=== PATIENT | female | born 1945 ===

== ENCOUNTER 2017-01-25 06:32 | Day surgery (SDC) | payer MEDICARE ==
[2017-01-25 07:04] VITALS: BMI 34.9
[2017-01-25] MEDS ORDERED: Lactated Ringer's 1,000 ML IV ONE (08:00)
--- NOTE | 2017-01-25 08:01 | CP.SDSHP ---
Same Day Surgery H & P - History Proposed Procedure: EGD Pre-Op Diagnosis: SEE NOTES - Previous Medical/Surgical History Endocrine/Metabolic: Other Misc: Other Pain: 4.Moderate Pain - Allergies Allergies: Allergies aspirin Allergy (Intermediate, Verified 01/25/17 07:03) ITCHING TINGLING AND ITCHING OF THE TONGUE. ciprofloxacin [From Cipro] Allergy (Intermediate, Verified 01/25/17 07:03) ITCHING TINGLING AND ITCHING OF TONGUE - Physical Exam General Appearance: N Vital Signs: Vital Signs 01/25/17 07:15 Temperature 97.3 F L Pulse Rate 66 Respiratory 19 Rate Blood Pressure 122/56 L O2 Sat by Pulse 99 Oximetry Mental Status: Alert & Oriented x3 Neuro: WNL Heart: WNL Lungs: WNL GI: Other - {Optional Preform as Required} Breast: WNL Abdomen: Other Rectal: Other Integument: WNL : WNL Ortho: WNL ENT: WNL - Impression Pt. Evaluated Today:Candidate for Anesthesia & Procedure: Yes - Date & Time Time: 08:01 Short Stay Discharge - Short Stay Discharge Admitting Diagnosis/Reason for Visit: DYSPEPSIA Disposition: HOME/ ROUTINE
[2017-01-25] MEDS ORDERED: Belladonna-Phenobarbital PO STA (08:02)
[2017-01-25] MEDS ORDERED: Pantoprazole 40 mg EC Tab PO STA (08:02)
[2017-01-25] MEDS ORDERED: Propofol 10 mg/ml Inj (20 ML) ONE (08:02)
[2017-01-25] MEDS ORDERED: Lidocaine Hydrochloride 5 ML INJ ONE (08:03)
[2017-01-25] MEDS ORDERED: Lactated Ringer's 500 ML IV SCH (08:15)
[2017-01-25 08:31] VITALS: TEMP 97.7
[2017-01-25 08:50] VITALS: O2SAT 99
[2017-01-25 08:52] VITALS: BP 121/73; PULSE 64; RESP 14
== END 2017-01-25 09:45 | disposition home or self-care (01) ==
LOC: C.ENDO 06:32
PROVIDERS: ATTEND Specialist
DX: K29.50 Unspecified chronic gastritis without bleeding (principal); K44.9 Diaphragmatic hernia without obstruction or gangrene; K29.80 Duodenitis without bleeding; B96.81 Helicobacter pylori [H. pylori] as the cause of diseases classified elsewhere
CPT/HCPCS: 43239; 88305; 88342; J2704; J7120